=== PATIENT | female | born 1950 | race Caucasian/White ===

== ENCOUNTER 2019-10-26 07:23 | Observation (INO) | payer MEDICARE ==
[~2019-10-26] VITALS: Ht 160 cm; Wt 56.8 kg
[2019-10-26] MEDS ORDERED: MECLIZINE CHEWABLE 25 MG TAB ONE (07:43)
[2019-10-26] MEDS ORDERED: SODIUM CHLORIDE FLUSH 10ML SYR IVF ONE (08:00)
[2019-10-26] MEDS ORDERED: MECLIZINE CHEWABLE 25 MG TAB PO ONE (08:00)
[2019-10-26 08:07] LABS: BASOPHILS # (AUTO) 0.03 x10^3/uL (0-0.1); BASOPHILS % (AUTO) 0 % (0-1); EOSINOPHILS # (AUTO) 0.06 x10^3/uL (0-0.4); EOSINOPHILS % (AUTO) 1 % (1-7); LYMPHOCYTES # (AUTO) 1.84 x10^3/uL (1-3.4); LYMPHOCYTES % (AUTO) 22 % (22-44); MD NO; MEAN CORPUSCULAR HEMOGLOBIN 29.8 pg (27.0-34.8); MEAN CORPUSCULAR HGB CONC 33.4 g/dL (32.4-35.8); MEAN CORPUSCULAR VOLUME 89.1 fL (80-100); MONOCYTES # (AUTO) 0.47 x10^3/uL (0.2-0.8); MONOCYTES % (AUTO) 6 % (2-9); NEUTROPHILS # (AUTO) 6.17 x10^3/uL (1.8-6.8); NEUTROPHILS % (AUTO) 72 % (42-75); PLATELET COUNT 371 x10^3/uL (130-400); RED BLOOD COUNT 4.28 x10^6/uL (3.82-5.3); RED CELL DISTRIBUTION WIDTH 13.9 % (9.6-15.2)
[2019-10-26 08:14] LABS: ALBUMIN 3.6 g/dL (3.4-5.0); ANION GAP 7 mmol/L (5-15); CALCIUM 9.2 mg/dL (8.5-10.1); CHLORIDE 109 mmol/L (98-107); CREATININE 0.84 mg/dL (0.55-1.02)
[2019-10-26 08:18] LABS: TROPONIN I < 0.015 ng/mL (0.000-0.045)
[2019-10-26 08:23] LABS: MICROSCOPIC INDICATED
[2019-10-26 08:39] LABS: CULTURE INDICATED? NO
[2019-10-26] MEDS ORDERED: METOCLOPRAMIDE 5 MG/ML, 2ML ONE (08:40)
[2019-10-26] MEDS ORDERED: LORazepam 1MG TABLET ONE (08:41)
[2019-10-26] MEDS ORDERED: LORazepam 1MG TABLET PO ONE (09:00)
[2019-10-26] MEDS ORDERED: METOCLOPRAMIDE 5 MG/ML, 2ML IVPush ONE (09:00)
--- NOTE | 2019-10-26 09:09 | NUR ---
BREAK RN: DR ALDRIDGE AT BEDSIDE TO [facility] PT.
[2019-10-26] MEDS ORDERED: DIAZEPAM 5 MG/ML, 2ML ONE (09:21)
--- NOTE | 2019-10-26 09:27 | NUR ---
DR ALDRIDGE AT BEDSIDE. PT GIVEN 2.5MG VALIUM IV, PER V/O R/T PT RECEIVED 1MG ATIVAN PT PRIMARY RN. PT DROWSY. RA SAT DECREASED TO 86% PLACED ON 2L NC. SATS INC TO 96% REPORT TO MEGAN MOJICA.
[2019-10-26] MEDS ORDERED: DIAZEPAM 5 MG/ML, 10ML VIAL IVPush ONE (09:30)
[2019-10-26] MEDS ORDERED: SODIUM CHLORIDE 0.9% 1,000 ML IV SCH (11:51)
[2019-10-26] MEDS ORDERED: ONDANSETRON 2MG/ML, 2ML IVPush PRN (12:00)
[2019-10-26] MEDS ORDERED: ONDANSETRON ODT 4 MG PO PRN (12:00)
[2019-10-26] MEDS ORDERED: SODIUM CHLORIDE FLUSH 10ML SYR IVF PRN (12:00)
[2019-10-26] MEDS ORDERED: ACETAMINOPHEN 325 MG TABLET PO PRN (12:00)
[2019-10-26] MEDS: HEPARIN 5,000 UNITS/ML, 1ML SQ SCH (13:57)
[2019-10-26 14:05] VITALS: BP 116/72
[2019-10-26 18:52] VITALS: BP 99/61
[2019-10-27 01:00] VITALS: BP 115/65
[2019-10-27] MEDS: MECLIZINE 12.5 MG TABLET PO SCH ×2 (08:38→15:47)
[2019-10-27 09:10] VITALS: BP 98/59
[2019-10-27] MEDS ORDERED: ONDA4TAB13 PO (09:36)
[2019-10-27] MEDS ORDERED: MECL12.52 PO (09:36)
[2019-10-27] MEDS: HEPARIN 5,000 UNITS/ML, 1ML SQ SCH ×2 (10:19)
[2019-10-27 13:44] VITALS: BP 118/72
== END 2019-10-27 18:30 | disposition home or self-care (01) ==
LOC: ED 08:14 → OBSVTOIN 11:36 → EDIP 11:36 → INTOOBSV 11:36 → 3N 13:13
PROVIDERS: ADMIT Family Medicine; ATTEND Family Medicine
DX: H81.10 Benign paroxysmal vertigo, unspecified ear (principal); R79.89 Other specified abnormal findings of blood chemistry; G89.29 Other chronic pain; J32.0 Chronic maxillary sinusitis
CPT/HCPCS: 36415; 70450; 71045; 80048; 81001; 82040; 83880; 84484; 85025; 93005; 96361; 96374; 96375; 97112; 97162; 99284; G0378; J2405; J2765; J3360; J7030